=== PATIENT | female | born 1945 | race Caucasian/White ===

== ENCOUNTER 2017-09-29 09:04 | Observation (INO) | payer MEDICARE, OTHER ==
[~2017-09-29] VITALS: Ht 172.7 cm; Wt 61.0 kg
[~2017-09-29 09:04] MED LIST: ADVAIR DISKU INH; AZITHROMYCIN250 MG PO; CALCIUM/D250 MG PO; CIPRO XR500 MG PO; LISINOPRIL10 MG PO; LORTAB 10 PO; PREMARIN VAG0.625 MG VA; ZOFRAN ODT4 MG PO
--- NOTE | 2017-09-29 09:18 | NUR ---
PT TO ROOM PER W/C
[2017-09-29 09:54] LABS: ALBUMIN 4.6 g/dL (3.2-5.0); ALKALINE PHOSPHATASE 87 u/l (38-126); ANION GAP 17 (6-22 (CALC)); BILIRUBIN, TOTAL 0.4 mg/dL (0.0-1.4); BUN 7 mg/dL (8-23); BUN/CREATININE RATIO 10 (12-20 (CALC)); CALCIUM 9.9 mg/dL (8.4-10.2); CARBON DIOXIDE 25 mmol/l (22-30); CHLORIDE 102 mmol/l (95-108); CREATININE 0.7 mg/dL (0.5-1.0); GFR > 60 ML/MIN (>=60 (CALC)); GFR FOR AFR.AMER. > 60 ML/MIN (>=60 (CALC)); GLUCOSE 123 mg/dL (82-115); HEMATOCRIT 40.4 % (37.0-47.0); HEMOGLOBIN 13.7 g/dl (12.0-16.0); IMMATURE GRANULOCYTES 0.5 % (0.0-1.0); MEAN CELL VOLUME 86.9 fL CALC (80.0-100.0); MEAN CORPUSCULAR HGB 29.5 pG CALC (26.0-32.0); MEAN CORPUSCULAR HGB CONC 33.9 g/L CALC (32.0-36.0); NEUT# 1.03 thou/uL (2.00-7.15); POTASSIUM 4.1 mmol/l (3.5-5.1); RED BLOOD COUNT 4.65 mill/uL (4.20-5.60); RED CELL DISTRI WIDTH 13.2 % (11.5-15.5); SGOT/AST 37 u/l (9-36); SGPT/ALT 53 u/l (11-66); SODIUM 140 mmol/l (137-146); TOTAL PROTEIN 7.3 g/dL (6.3-8.2)
[2017-09-29 10:05] LABS: MYOGLOBIN 33 ng/mL (0 - 62)
--- NOTE | 2017-09-29 10:45 | NUR ---
PT PROVIDED MED ORDERED, RESTS IN THE STRETCHER IN NO ACUTE DISTRESS.
--- NOTE | 2017-09-29 11:30 | NUR ---
MANAGER [employer]ODUCT DESIGN ROBBY HERE TO REVIEW CHART, INPATIENT VS OBSERVATION STATUS.
[2017-09-29] MEDS ORDERED: FOSAMAX PLUS1 TAB PO (11:46)
[2017-09-29] MEDS ORDERED: DIOVAN320 MG PO (11:46)
[2017-09-29] MEDS ORDERED: AZELASTINE HCL0.1 % (11:48)
[2017-09-29] MEDS ORDERED: FLOVENT DI50 MCG/BLI IN (11:49)
--- NOTE | 2017-09-29 12:51 | NUR ---
REPORT PROVIDED TO BLAIR. TO FLOOR SOON.
--- NOTE | 2017-09-29 12:52 | NUR ---
PT.ARRIVED TO FLOOR VIA STRETCHER, SELF AMBULATED TO STANDING SCALE AND BED. SHE WAS ACCOMPANIED BY YVONNE OF ED. PT.APPEARS TO BE IN GOOD CONDITION, V/S ASSESSED, CALL LIGHT WITHIN REACH AND INSTRUCTED TO CALL.
--- NOTE | 2017-09-29 13:02 | NUR ---
PT TAKEN TO ROOM 290 WITHOUT INCIDENT.
[2017-09-29 15:34] VITALS: BP 133/75
--- NOTE | 2017-09-29 16:03 | NUR ---
PT.ASSESSED, LUNG SOUNDS ARE CLEAR, DENIES CHEST PAIN AT THIS TIME. NITRO PATCH IN PLACE ON LEFT CHEST, LOCX4, PT.COUGHED ONCE WHILE I WAS IN ROOM ADMITTING AND ASSESSING HER. DENIES ANY OTHER SYMPTOMS. POC DISCUSSED, PT.INSTRUCTED TO CALL IF ANY NEEDS ARISE.
--- NOTE | 2017-09-29 19:30 | NUR ---
BEDSIDE REPORT RECEIVED FROM DARRION PINTO. PT RESTING IN BED WATCHING TV. ALERT AND ORIENTED. DENIES PAIN, BUT DOES C/O OF SOME DISCOMFORT TO LEFT SIDE/RIB AREA MAY BE RELATED TO COUGH. NON PRODUCTIVE COUGH NOTED. RESPIRATIONS EVEN AND UNLABORED. PT ALSO C/O INTERMITTENT NAUSEA AND BOUTS OF DIARRHEA. PLAN OF CARE REVIEWED. PT ENCOURAGED TO VERBALIZE CONCERNS. STATES UNDERSTANDNING. SAFETY MEASURES IN PLACE. CALL LIGHT SYSTEM REVIEWED AND IN REACH.
[2017-09-29 19:50] VITALS: BP 128/81
--- NOTE | 2017-09-29 20:00 | NUR ---
NEW ORDERS RECEIVED FOR COUGH MEDICINE AND ZOFRAN. COUGH MEDICATION ADMINISTERED; PT DECLINED ZOFRAN AT THIS TIME STATING THAT THE NAUSEA HAS SUBSIDED FOR NOW. PT DID HAVE ONE VERY SMALL EPISODE OF DIARRHEA, LIGHT BROWN/YELLOW IN COLOR. PT DENIES ABDOMINAL DISCOMFORT. PILLOW GIVEN FOR POSITIONING HAS HELPED WITH DISCOMFORT TO LEFT SIDE. WILL CONTINUE TO MONITOR.
--- NOTE | 2017-09-30 | NUR ---
PT REMAINS FREE OF NAUSEA. HAS HAD ANOTHER LOOSE BOWEL MOVEMENT. SHE IS INDEPENDENT IN ROOM. DENIES PAIN. HAS NO REQUESTS AT THIS TIME. CALL LIGHT WITHIN REACH.
[2017-09-30 00:40] VITALS: BP 137/86
--- NOTE | 2017-09-30 04:15 | NUR ---
PT ASLEEP AT THIS TIME WITH NO SIGNS OF DISTRESS NOTED. RESPIRATIONS EVEN AND UNLABORED ON RA. PT INDEPENDENT IN ROOM AND UP AD MART[place] TO BATHROOM. SAFETY PRECAUTIONS REINFORCED. CALL LIGHT WITHIN REACH.
[2017-09-30 04:55] VITALS: BP 147/85
[2017-09-30 09:05] VITALS: BP 159/82
--- NOTE | 2017-09-30 09:13 | NUR ---
BEDSIDE REPORT RECEIVED FROM NIGHT NURSE, PT.WAS SLEEPING AT THAT TIME. PT.IS NOW UPRIGHT IN BED W/TV ON AND LIGHTS ON. SHE REPORTS EATING BREAKFAST AND DENIES ANY NAUSEA AT THIS TIME. C/O SINUS PRESSURE, MEDICATED WITH TYLENOL AND B/P MEDICATION ORDERED. V/S ASSESSED. REPORTS SMALL AMOUNT OF DIAHREAA THIS AM, NORMAL COLOR IN APPEARANCE. DENIES ANY OTHER NEEDS AND CALL LIGHT IS W/IN REACH.
[2017-09-30 11:00] VITALS: BP 154/84
[2017-09-30] MEDS ORDERED: ASPIRIN 81 LOW81 MG PO (15:15)
[2017-09-30 15:16] VITALS: BP 168/88
[2017-09-30 15:30] LABS: CHOLESTEROL HDL RATIO 3.9 (<4.4 (CALC))
--- NOTE | 2017-09-30 16:28 | NUR ---
PT.DISCHARGED OFF UNIT FLOOR SELF AMUBULATORY IN GOOD CONDITION. SHE "WANTS TO WALK." DAUGHTER IS AT HER SIDE.
== END 2017-09-30 16:16 | disposition home or self-care (01) ==
LOC: ED 09:04 → ED-I 10:05 → ED 10:15 → MS2 10:16
PROVIDERS: Emergency Medicine; Nurse Practitioner Family; ADMIT Internal Medicine; ATTEND Internal Medicine
DX: R07.9 Chest pain, unspecified (principal); D72.819 Decreased white blood cell count, unspecified; I10 Essential (primary) hypertension; F41.9 Anxiety disorder, unspecified; R06.00 Dyspnea, unspecified

== ENCOUNTER → 2018-11-05 | Outpatient (REF) | payer MEDICARE, OTHER ==
[~2018-11-05] MED LIST changes: +ASPIRIN 81 LOW81 MG PO; +AZELASTINE HCL0.1 %; +DIOVAN320 MG PO; +FLOVENT DI50 MCG/BLI IN; +FOSAMAX PLUS1 TAB PO
[2018-11-05 11:24] LABS: HEMATOCRIT 33.5 % (37.0-47.0); HEMOGLOBIN 11.4 g/dl (12.0-16.0); IMMATURE GRANULOCYTES 0.3 % (0.0-5.0); MEAN CELL VOLUME 89.6 fL CALC (80.0-100.0); MEAN CORPUSCULAR HGB 30.5 pG CALC (26.0-32.0); RED BLOOD COUNT 3.74 mill/uL (4.20-5.60); RED CELL DISTRI WIDTH 13.6 % (11.5-15.5)
[2018-11-05 12:01] LABS: ALBUMIN 4.3 g/dL (3.2-5.0); ALKALINE PHOSPHATASE 52 u/l (38-126); ANION GAP 15 (6-22 (CALC)); BILIRUBIN, TOTAL 0.4 mg/dL (0.0-1.4); BUN 13 mg/dL (8-23); BUN/CREATININE RATIO 14 (12-20 (CALC)); CARBON DIOXIDE 28 mmol/l (22-30); CHLORIDE 99 mmol/l (95-108); CREATININE 0.9 mg/dL (0.5-1.0); GFR > 60 ML/MIN (>=60 (CALC)); GFR FOR AFR.AMER. > 60 ML/MIN (>=60 (CALC)); POTASSIUM 4.1 mmol/l (3.5-5.1); SGOT/AST 18 u/l (9-36); SODIUM 137 mmol/l (137-146); TOTAL PROTEIN 6.6 g/dL (6.3-8.2)
== END | disposition home or self-care (01) ==
LOC: LAB 10:35
PROVIDERS: ATTEND Internal Medicine Infectious Disease
DX: A31.0 Pulmonary mycobacterial infection (principal)

== ENCOUNTER 2020-02-12 06:45 | Day surgery (SDC) | payer MEDICARE, OTHER ==
[~2020-02-12 06:45] MED LIST changes: -CALCIUM/D250 MG PO; +CENTRUM SILVER1 TA1 PO; +CITRACAL +3 PO; +CLARITHROMYC500 M2 PO; +HYDROCHLOROT12.5 M1 PO; +METOPROL TAR25 MG PO; +METOPROLOL5 MG/5 ML IV; +METOPROLOL5 MG/5 ML PO; +TIZANIDINE2 MG PO
[2020-02-12] MEDS ORDERED: PERCOCET 5/325M1 TAB PO (09:51)
[2020-02-12 11:09] VITALS: BP 150/74
== END 2020-02-12 11:20 | disposition home or self-care (01) ==
LOC: ORM 06:45
PROVIDERS: ATTEND Surgery
PROC: 0FT44ZZ Resection of Gallbladder, Percutaneous Endoscopic Approach (ICD-10-PCS; principal; 2020-02-12)
DX: K80.10 Calculus of gallbladder with chronic cholecystitis without obstruction (principal); I10 Essential (primary) hypertension; Z11.59 Encounter for screening for other viral diseases
CPT/HCPCS: J0131; J1100; J2710